=== PATIENT | female | born 1960 | race Hispanic/Latino ===

== ENCOUNTER 2021-09-11 04:13 | Emergency (ER) | payer SELFPAY ==
[~2021-09-11] VITALS: Ht 160 cm; Wt 80.7 kg
[2021-09-11 04:47] VITALS: BP 150/76
[2021-09-11] MEDS ORDERED: TETANUS/DIPHTHERIA TOXOID [ADULT] 0.5 ML VIAL IM ONE (04:52)
[2021-09-11] MEDS ORDERED: DOXY-336 PO (04:54)
[2021-09-11] MEDS ORDERED: DIPH,PERTUSS(ACELL),TET VAC/PF 0.5 ML VIAL IM ONE (05:00)
== END 2021-09-11 05:00 | disposition home or self-care (01) ==
LOC: EDH 04:13
DX: S01.05XA Open bite of scalp, initial encounter (principal); W53.11XA Bitten by rat, initial encounter; Y93.89 Activity, other specified; Y92.89 Other specified places as the place of occurrence of the external cause; Y99.8 Other external cause status
CPT/HCPCS: 90471; 90714; 90715